=== PATIENT | female | born 2000 | race Caucasian/White ===

== ENCOUNTER 2021-01-03 12:28 | Emergency (ER) | payer SELFPAY ==
[2021-01-03] MEDS ORDERED: Ibuprofen 200 MG TAB ONE (13:15)
[2021-01-03] MEDS ORDERED: Bicillin LA 1.2 MILLION UNITS/2 ML SYRINGE ONE (14:06)
[2021-01-04 01:18] LABS: SARS-CoV-2 PCR by NAA Not Detected (NotDetected)
== END 2021-01-03 14:18 | disposition home or self-care (01) ==
LOC: CSHERS 12:28
DX: J02.0 Streptococcal pharyngitis (principal); Z20.822 Contact with and (suspected) exposure to COVID-19
CPT/HCPCS: 87430; 87635; 87804; 96372; 99283; J0561; U0003; U0005

== ENCOUNTER 2024-10-09 13:33 | Emergency (ER) | payer SELFPAY | END 2024-10-09 15:44 | disposition home or self-care (01) | LOC: CSHERS 13:33 | DX: J10.1 Influenza due to other identified influenza virus with other respiratory manifestations (principal) | CPT/HCPCS: 71045; 87428 ==